=== PATIENT | male | born 2005 | race African-American/Black ===

== ENCOUNTER 2024-12-22 15:35 | Emergency (ER) | payer OTHER ==
[~2024-12-22] VITALS: Ht 177.8 cm; Wt 68.2 kg
[2024-12-22 15:42] VITALS: TEMP 98.5
[2024-12-22 16:10] LABS: PLATELET COUNT (AUTO) 266 K/uL (150-450); RED BLOOD CELL COUNT(AUTO) 4.41 MIL/uL (4.50-5.90); RED CELL DISTRIBUTION WIDTH 13.6 % (11.5-14.5); WHITE BLOOD COUNT (AUTO) 4.2 K/uL (4.5-11.0)
[2024-12-22] MEDS: DEXAMETHASONE SOD PHOS 4 MG/ML 5 ML VIAL IVP ONE (16:14)
[2024-12-22] MEDS: SODIUM CHLORIDE 0.9% 2,000 ML IV ONE (16:14)
[2024-12-22] MEDS: METOCLOPRAMIDE HCL 5 MG/ML 2 ML VIAL IVP ONE (16:14)
[2024-12-22] MEDS: ONDANSETRON HCL 4 MG/2 ML VIAL IVP ONE (16:14)
[2024-12-22 16:19] LABS: CALCIUM, TOTAL 8.1 mg/dL (8.8-10.5); CREATININE 1.25 mg/dL (0.60-1.30); GLOMERULAR FILTR. RATE CALC > 60 mL/min (>60); GLUCOSE,RANDOM 104 mg/dL (70-110); SODIUM SERUM 130 mmol/L (136-145); UREA NITROGEN, BLOOD 11 mg/dL (7-18)
[2024-12-22] MEDS: VALPROATE SODIUM 500 MG in DEXTROSE 5%-WATER 50 ML IV ONE (16:23)
[2024-12-22 16:24] LABS: CREATINE KINASE, TOTAL ONLY 99 U/L (39-308)
[2024-12-22 16:27] LABS: LACTIC ACID 1.9 mmol/L (0.4-2.0)
[2024-12-22 19:25] VITALS: BP 120/67; PULSE 83; RESP 16; O2SAT 97
[2024-12-22] MEDS: ACETAMINOPHEN 500 MG TABLET PO ONE (19:29)
== END 2024-12-22 20:00 | disposition home or self-care (01) ==
LOC: EMS 15:35
DX: G44.209 Tension-type headache, unspecified, not intractable (principal); J45.909 Unspecified asthma, uncomplicated; Z86.718 Personal history of other venous thrombosis and embolism
CPT/HCPCS: 99285; 96365; 96375; 70450; 71045; 80048; 82550; 83605; 85025; 36415; J1100; J2765; J2405; J3490; J7060; J7030